=== PATIENT | male | born 1990 | race African-American/Black ===

== ENCOUNTER 2022-06-30 12:14 | Emergency (ER) | payer OTHER ==
[2022-06-30 12:21] VITALS: BP 96/59; PULSE 105; RESP 20; TEMP 97.7; BMI 17.9
[2022-06-30] MEDS ORDERED: CYCLOBENZAPRINE HCL 10 MG TABLET (FP) PO ONE (13:33)
[2022-06-30] MEDS ORDERED: IBUPROFEN 600 MG TABLET (FP) PO ONE ×2 (13:33→13:53)
[2022-06-30] MEDS ORDERED: ACETAMINOPHEN 500 MG TABLET (FP) PO ONE (13:33)
[2022-06-30] MEDS ORDERED: ACETAMINOPHEN 500 MG TABLET (FP) ONE (13:53)
[2022-06-30] MEDS ORDERED: CYCLOBENZAPRINE HCL 10 MG TABLET (FP) ONE (13:53)
[2022-06-30] MEDS ORDERED: BACITRACIN ZINC 15 GM TUBE TOPICAL OINTMENT TP ONE (14:26)
[2022-06-30] MEDS ORDERED: BACITRACIN ZINC 15 GM TUBE TOPICAL OINTMENT ONE (14:27)
== END 2022-06-30 14:55 | disposition home or self-care (01) ==
LOC: JERFT 12:14
PROC: 0HQ1XZZ Repair Face Skin, External Approach (ICD-10-PCS; principal; 2022-06-30)
DX: S01.81XA Laceration without foreign body of other part of head, initial encounter (principal); Y04.8XXA Assault by other bodily force, initial encounter
CPT/HCPCS: 73090-TC-LT-FY; 73110-TC-LT-FY; 73130-TC-LT-FY; 99284-25